=== PATIENT | female | born 1950 | race Two or more races ===

== ENCOUNTER 2021-02-05 10:10 | Inpatient (IN) | payer OTHER ==
[~2021-02-05] VITALS: Ht 160 cm; Wt 73.0 kg
[2021-02-05] VITALS (23 sets, daily range): BP systolic 109–143; BP diastolic 48–61
[2021-02-05 10:33] LABS: Basophils # (auto) 0.1 10 ^3/uL (0-0.2); Basophils % (auto) 0.5 % (0.0-2.0); Eosinophils # (auto) 0.3 10 ^3/uL (0-0.8); Eosinophils % (auto) 2.5 % (0.0-7.0); Mean Corpuscular Hemoglobin 28.7 pg (28.0-32.0); Mean Corpuscular Hgb Conc. 33.3 g/dL (32.0-36.0); Mean Corpuscular Volume 86.1 fL (80.0-100.0); Monocytes % (auto) 9.2 % (0.0-12.0); Neutrophils # (auto) 7.3 10 ^3/uL (1.6-8.6); Neutrophils % (auto) 68.8 % (37.0-80.0); Nucleated Red Blood Cells % 0.1 %; Red Blood Cells 3.84 10^6/uL (4.0-5.20); Red Cell Distribution Width 14.6 % (11.8-14.3); White Blood Cell 10.6 10^3/uL (4.4-10.8)
[2021-02-05 11:01] LABS: INR 0.96 (0.9-1.15); Partial Thromboplastin Time 25.1 sec (23.0-31.2)
[2021-02-05 12:47] LABS: Albumin 3.6 g/dL (3.4-5.0); BUN/Creatinine Ratio 19.8; Calcium 8.5 mg/dL (8.5-10.1)
[2021-02-05 12:53] LABS: Bilirubin, Total 0.3 mg/dL (0.2-1.0); Total Protein 7.9 g/dL (6.4-8.2)
[2021-02-05] MEDS ORDERED: CLOPIDOGREL BISULFATE 75 MG TAB PO ONE (13:30)
[2021-02-05] MEDS ORDERED: LIDOCAINE 2%HCL (LOCAL ANESTH.) INJ 20ML MDV ONE (13:56)
[2021-02-05] MEDS ORDERED: IODIXANOL 320MG/ML 100ML BTL IV ONE (13:56)
[2021-02-05] MEDS ORDERED: HEPARIN SODIUM (PORCINE) 5000 UNITS/ML 1ML VIAL ONE (13:59)
[2021-02-05] MEDS ORDERED: ANGIOMAX 250 MG VIAL IV ONE (13:59)
[2021-02-05] MEDS ORDERED: VERAPAMIL 2.5MG/ML INJ 2ML VIAL IV ONE (13:59)
[2021-02-05] MEDS ORDERED: SODIUM CHL 0.9% 0 ML ONE (14:00)
[2021-02-05] MEDS ORDERED: fentaNYL CITRATE 100 MCG/2 ML VL ONE (14:00)
[2021-02-05] MEDS ORDERED: MIDAZOLAM HCL 2MG/2ML 2ml VIAL (1mg/ml) ONE (14:00)
[2021-02-05] MEDS ORDERED: HYDROcodone-ACET 5/325MG TAB PO PRN (14:15)
[2021-02-05] MEDS ORDERED: DEXTROSE (50%) 50ML SYRG IV PRN (14:15)
[2021-02-05] MEDS ORDERED: ONDANSETRON HCL 4 MG/2 ML VIAL IV PRN (14:15)
[2021-02-05] MEDS ORDERED: ACETAMINOPHEN 500 MG TAB PO PRN (14:15)
[2021-02-05] MEDS ORDERED: NITROGLYCERIN 0.4 MG SL TAB SL PRN (14:15)
[2021-02-05] MEDS ORDERED: MORPHINE SULFATE INJECTION 2 MG/ML SYRG IV PRN ×2 (14:15)
[2021-02-05] MEDS ORDERED: hydrALAZINE HCL 20 MG/ML VL IV PRN (14:15)
[2021-02-05] MEDS ORDERED: NITROGLYCERIN 50MG/250ML 250 ML IV ONE (14:50)
[2021-02-05] MEDS: InsuLIN REG 1unit/0.01ml Soln (100units/ml) SC SCH ×2 (17:00→23:05)
[2021-02-05] MEDS: ACCU-CHEK COMFORT CURVE STRIP VI SCH ×2 (17:00→23:03)
[2021-02-05] MEDS: NITROGLYCERIN 50MG/250ML 250 ML IV SCH (17:30)
[2021-02-05] MEDS: DOCUSATE SOD 100 MG CAP PO SCH (22:00)
[2021-02-05] MEDS ORDERED: ATORVASTATIN 20 MG TAB PO SCH (22:00)
[2021-02-05] MEDS: METOPROLOL TARTRATE 25 MG TAB PO SCH (22:00)
[2021-02-06] VITALS (57 sets, daily range): BP systolic 100–157; BP diastolic 40–85
[2021-02-06 05:32] LABS: Basophils # (auto) 0 10 ^3/uL (0-0.2); Basophils % (auto) 0.2 % (0.0-2.0); Eosinophils # (auto) 0.2 10 ^3/uL (0-0.8); Eosinophils % (auto) 2.1 % (0.0-7.0); Hematocrit 30.5 % (36.0-46.0); Hemoglobin 10.4 g/dL (12.2-16.2); Lymphocytes # (auto) 1.2 10 ^3/uL (0.4-5.4); Lymphocytes % (auto) 15.3 % (10.0-50.0); Mean Corpuscular Hemoglobin 28.7 pg (28.0-32.0); Mean Corpuscular Volume 84.4 fL (80.0-100.0); Monocytes # (auto) 0.5 10 ^3/uL (0-1.3); Monocytes % (auto) 5.9 % (0.0-12.0); Neutrophils # (auto) 6.2 10 ^3/uL (1.6-8.6); Neutrophils % (auto) 76.5 % (37.0-80.0); Nucleated Red Blood Cells % 0.1 %; Red Blood Cells 3.62 10^6/uL (4.0-5.20); Red Cell Distribution Width 14.5 % (11.8-14.3); White Blood Cell 8.1 10^3/uL (4.4-10.8)
[2021-02-06 05:47] LABS: Calcium 8.4 mg/dL (8.5-10.1); Potassium 4.4 mmol/L (3.5-5.1)
[2021-02-06 05:52] LABS: INR 0.99 (0.9-1.15); Partial Thromboplastin Time 24.8 sec (23.0-31.2)
[2021-02-06 05:53] LABS: BUN/Creatinine Ratio 20.3
[2021-02-06] MEDS: InsuLIN REG 1unit/0.01ml Soln (100units/ml) SC SCH ×3 (07:26→17:49)
[2021-02-06] MEDS: ACCU-CHEK COMFORT CURVE STRIP VI SCH ×3 (07:26→17:51)
[2021-02-06] MEDS: DOCUSATE SOD 100 MG CAP PO SCH (07:54)
[2021-02-06] MEDS: METOPROLOL TARTRATE 25 MG TAB PO SCH (08:56)
[2021-02-06] MEDS ORDERED: FAMOTIDINE 20 MG TAB PO SCH (10:00)
[2021-02-06] MEDS ORDERED: ASPirin-EC 81 mg tab PO SCH (10:00)
[2021-02-06] MEDS ORDERED: LISINOPRIL 10 MG TAB PO SCH (10:00)
[2021-02-06] MEDS: NITROGLYCERIN 50MG/250ML 250 ML IV SCH (11:31)
[2021-02-06 11:32] LABS: Cholesterol 127 mg/dL (< 200)
[2021-02-06 11:35] LABS: HDL Cholesterol 44 mg/dL (40-59); LDL Cholesterol 63 mg/dL (< 100); Triglycerides 150 mg/dL (< 150)
== END 2021-02-07 00:18 | disposition short-term general hospital, planned readmission (82) | DRG 282 ==
LOC: ER 10:10 → TELE 10:11 → DOU IN ICU 17:20 → TELE-CENTR 02-06 15:03
PROVIDERS: ADMIT Nurse Practitioner Acute Care; ATTEND Family Medicine
PROC: 4A023N7 Measurement of Cardiac Sampling and Pressure, Left Heart, Percutaneous Approach (ICD-10-PCS; principal; 2021-02-05)
PROC: B2111ZZ Fluoroscopy of Multiple Coronary Arteries using Low Osmolar Contrast (ICD-10-PCS; 2021-02-05)
PROC: B2151ZZ Fluoroscopy of Left Heart using Low Osmolar Contrast (ICD-10-PCS; 2021-02-05)
DX: I21.19 ST elevation (STEMI) myocardial infarction involving other coronary artery of inferior wall (principal); N18.30 Chronic kidney disease, stage 3 unspecified; Z20.822 Contact with and (suspected) exposure to COVID-19; D64.9 Anemia, unspecified; E11.22 Type 2 diabetes mellitus with diabetic chronic kidney disease; E78.5 Hyperlipidemia, unspecified; I12.9 Hypertensive chronic kidney disease with stage 1 through stage 4 chronic kidney disease, or unspecified chronic kidney disease; I25.10 Atherosclerotic heart disease of native coronary artery without angina pectoris; M19.90 Unspecified osteoarthritis, unspecified site; Z96.641 Presence of right artificial hip joint; Z79.4 Long term (current) use of insulin
CPT/HCPCS: 36415; 71045; 80048; 80053; 80061; 82728; 82962; 83036; 83735; 83880; 84443; 84484; 85025; 85379; 85610; 85730; 86141; 86850; 86900; 86901; 87081; 87426; 93005; 93306; 93458; 99152; G0378; J1815; J2250; Q9967